=== PATIENT | male | born 1990 | race Caucasian/White ===

== ENCOUNTER 2021-07-27 16:43 | Emergency (ER) | payer OTHER ==
[~2021-07-27] VITALS: Ht 180.3 cm; Wt 90.0 kg
[2021-07-27 16:54] VITALS: BP 145/101
--- NOTE | 2021-07-27 17:03 | PHYS DOC ---
General Adult EDM: Chief Complaint: HAND PROBLEM HPI: HPI: Patient is a 31 year old male who presents in [facility] custody for medical clearance. The nurse in the correctional facility noticed some swelling on his right hand and refused acceptance until he received medical clearance and attention. Patient denies all complaints at this time and does not wish to be evaluated at all. (NORBERTO CANNON) Review of Systems: Review of Systems: 12 systems reviewed. ROS negative except as mentioned in HPI. (NORBERTO CANNON) Allergies: Allergies: Allergies Coded Allergies Type Severity Reaction Last Updated Verified No Known Drug Allergies 07/27/21 No (NORBERTO CANNON) Physical Exam: PE: Exam limited secondary to patient refusal. Constitutional: Well developed, well nourished, no acute distress, non-toxic appearance. Skin: Warm, dry, no erythema, no rash, no abrasion, no laceration. Extremities: Localized swelling to the MCP joints of digits 2 and 3 on the right hand. Neurologic: Alert and oriented x4, symmetric and steady gait, no focal deficits noted. (NORBERTO CANNON) Heart Score: C/O Chest Pain: No (NORBERTO CANNON) Course & Med Decision Making: Course & Med Decision Making Pertinent Labs and Imaging studies reviewed. (See chart for details) Patient is a 31-year-old male who presents in law enforcement custody for medical clearance exam. Nurse at correctional facility noticed swelling to his right hand. Patient denies all complaints and states that the swelling is because his "hands are really strong right there." I informed the patient that I would like to x-ray his hand to evaluate for metacarpal fractures, which left untreated could lead to permanent disability of the hand. Patient states, "it don't matter." A medical clearance and screening exam, which would include x- ray and examination of his hand is refused by the patient. Patient will sign out of the department AGAINST MEDICAL ADVICE. (NORBERTO CANNON) Dragon Disclaimer: Dragon Disclaimer: This electronic medical record was generated, in whole or in part, using a voice recognition dictation system. (NORBERTO CANNON) Attending Co-Sign The patient was seen and interviewed as well as examined at the bedside. The chart was reviewed. The case was discussed. Agree with the plan of care. (RACHELLE MUÑOZ DO) Departure Departure: Impression: Primary Impression: Left against medical advice Disposition: 07 LEFT AGAINST MEDICAL ADVICE Condition: GUARDED Referrals: PCP,NO (PCP) NORBERTO CANNON Jul 27, 2021 17:03 RACHELLE MUÑOZ DO Jul 28, 2021 11:55
== END 2021-07-27 17:00 | disposition left against medical advice (07) ==
LOC: ER 16:43
DX: M79.89 Other specified soft tissue disorders (principal); Z53.29 Procedure and treatment not carried out because of patient's decision for other reasons
CPT/HCPCS: 99281